=== PATIENT | female | born 2005 | race Caucasian/White ===

== ENCOUNTER 2023-03-22 16:57 | Emergency (ER) | payer BC ==
[2023-03-22 17:58] LABS: Specific Gravity < 1.005 (1.005-1.030); Urine Bacteria <20 /HPF (<20); Urine Bilirubin NEGATIVE (Negative); Urine Blood 3+ (OVER) (Negative); Urine Clarity Clear (Clear); Urine Color Colorless (Yellow); Urine Crystals Unidentified Few /HPF (None Seen); Urine Glucose NEGATIVE (Negative); Urine Protein TRACE (Negative); Urine Urobilinogen Normal (Normal); Urine pH 7.5 (5.0-7.0)
[2023-03-22 19:12] LABS: Albumin 2.9 g/dL (3.4-5.0); Bilirubin Total 0.1 mg/dL (0.2-1.0); Potassium 3.4 mEq/L (3.5-5.1); Protein, Total 7.1 g/dL (6.4-8.2)
[2023-03-22 19:16] LABS: Absolute Lymphocytes (CBC) 2.6 K/uL (0.7-4.9); Hematocrit 34.7 % (36.0-45.0); Lymphocytes % 19.9 % (15.3-44.8); MCV 86.2 fL (80-100); MPV 7.7 fL (7.6-11.3); RBC Red Blood Cell Count 4.03 M/uL (3.86-4.86)
--- NOTE | 2023-03-22 19:51 | ER ---
Nurse's Notes [facility] Name: Jessica Nair Age: 18 yrs Sex: Female : 2005 Arrival Date: 03/22/2023 Time: 16:57 Bed 8 Private MD: Diagnosis: UTI/ Urinary tract infection, site not specified; 4 days Presentation: 03/22 16:59 Chief complaint: Patient states: patient is 4 days post delivery. patient states she ap3 was feeling "full in her head" today. family member reports that the patients blood pressure was 140/110 [employer] and felt anxious. Coronavirus screen: At this time, the client does not indicate any symptoms associated with coronavirus-19. Ebola Screen: No symptoms or risks identified at this time. Initial Sepsis Screen: Does the patient meet any 2 criteria? No. Patient's initial sepsis screen is negative. Does the patient have a suspected source of infection? No. Patient's initial sepsis screen is negative. Risk Assessment: Do you want to hurt yourself or someone else? Patient reports no desire to harm self or others. Onset of symptoms was March 22, 2023. 16:59 Method Of Arrival: Wheelchair ap3 16:59 Acuity: JOSE 3 ap3 Triage Assessment: 17:05 General: Appears distressed, Behavior is anxious. Pain: Denies pain. Neuro: Level of ap3 Consciousness is awake, alert, obeys commands, Oriented to person, place, time, situation, Reports dizziness, her head "feeling full". Cardiovascular: Patient's skin is warm and dry. Respiratory: Airway is patent Respiratory effort is even, unlabored, Respiratory pattern is regular, symmetrical. 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 - Social history:: Smoking status: Reported history of juuling and/or vaping. - Family history:: not pertinent. - Hospitalizations: : Patient was recently seen at. Screenin:05 Abuse screen: Denies threats or abuse. Nutritional screening: No deficits noted. ap3 Tuberculosis screening: No symptoms or risk factors identified. 19:35 [facility] ED Fall Risk Assessment (Adult) History of falling in the last 3 months, nj1 including since admission No falls in past 3 months (0 pts) Confusion or Disorientation No (0 pts) Intoxicated or Sedated No (0 pts) Impaired Gait No (0 pts) Mobility Assist Device Used No (0 pt) Altered Elimination No (0 pt) Score/Fall Risk Level 0 - 2 = Low Risk Oriented to surroundings, Maintained a safe environment, Hourly rounding (assess needs \\T\\ fall precautionary measures) done. Assessment: 18:01 Reassessment: Pt states "I do not want my blood drawn until my urine results come ld1 back.". 18:12 Reassessment: MD Stanford made aware patient is concerned that the hospital does not have cm9 OB services r/t recently giving and "possible eclamsia"; pt. refusing blood work until urine results reviewed with pt. verbalized understanding and at bedside discussing plan of care with pt. 19:35 Reassessment: Patient appears in no apparent distress at this time. Patient and/or nj1 family updated on plan of care and expected duration. Pain level reassessed. Patient is alert, oriented x 3, equal unlabored respirations, skin warm/dry/pink. Patient denies pain at this time. Vital Signs: 16:59 BP 129 / 82; Pulse 71; Resp 17; Temp 98.1; Pulse Ox 100% ; Height 5 ft. 3 in. ; ap3 19:36 BP 124 / 74; nj1 19:53 BP 133 / 82; Pulse 64; Resp 16; Temp 98.4; Pulse Ox 100% on R/A; nj1 ED Course: 16:59 Patient arrived in ED. ap3 17:03 Triage completed. ap3 17:04 Elieser Lopez PA is PHCP. cp 17:04 Geo Dominguez DO is Attending Physician. cp 17:05 Arm band placed on right wrist. ap3 17:12 Davide Coyne MD is Attending Physician. rn 18:40 CBC with Diff Sent. cm9 18:40 CMP Sent. cm9 18:40 Lipase Sent. cm9 18:40 LDH Sent. cm9 18:41 Attending Physician role handed off by Davide Coyne MD ms3 18:41 Geo Dominguez DO is Attending Physician. ms3 18:59 Attending Physician role handed off by Geo Dominguez DO ms3 18:59 Chris Armstrong MD is Attending Physician. ms3 19:00 Jordyn Peñaloza, RN is Primary Nurse. nj1 19:35 Patient has correct armband on for positive identification. Call light in reach. Adult nj1 w/ patient. 19:53 No provider procedures requiring assistance completed. nj1 19:53 Patient did not have IV access during this emergency room visit. nj1 Administered Medications: 20:06 Not Given (Pt discharged ): Trimethoprim-Sulfamethoxazole PO (160 mg-800 mg (DS) 1 nj1 tablet PO once Medication: 19:53 VIS not applicable for this client. nj1 Outcome: 19:50 Discharge ordered by . kdr 19:53 Discharged to home ambulatory. nj1 19:53 Condition: good 19:53 Discharge instructions given to patient, family, Instructed on discharge instructions, follow up and referral plans. medication usage, Demonstrated understanding of instructions, follow-up care, medications, Prescriptions given X 1. 20:09 Patient left the ED. nj1 Signatures: Chris Armstrong MD MD kdr Nieto, Roman, MD MD rn Elieser Lopez, PA PA Kathleen Andrade RN RN ap3 Geo Dominguez DO DO ms3 Jenae Dominguez, JIL RN ld1 Jordyn Peñaloza, RN RN nj1 Yajaira Rivero, RN RN cm9
--- NOTE | 2023-03-22 19:51 | EDPHYS ---
Physician Documentation [facility] Name: Jessica Nair Age: 18 yrs Sex: Female : 2005 Arrival Date: 03/22/2023 Time: 16:57 Bed 8 Private MD: ED Physician Chris Armstrong HPI: 03/22 17:25 This 18 yrs old Female presents to ER via Wheelchair with complaints of anxiety, high rn blood pressure. 17:25 The patient has elevated blood pressure and discovered this at home. Onset: The rn symptoms/episode began/occurred today. Modifying factors: The symptoms are aggravated by anxiety, The symptoms are alleviated by. Associated signs and symptoms: Pertinent negatives: chest pain, headache, visual changes. Severity of symptoms: At its worst the blood pressure was moderate, in the emergency department the blood pressure is improved. The patient has experienced similar episodes in the past. The patient has been recently seen by a physician:. Pt is 4 days post-, has had anxiety that began 2 weeks prior to delivery, takes hydroxyzine for anxiety, reports anxiety worse since delivery, has been emotional and tearful despite medication. BP was elevated at home, markedly improved after took her anxiety medication on the way here. Denies headache/vision changes/chest pain/sob/swelling. . 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 - Social history:: Smoking status: Reported history of juuling and/or vaping. - Family history:: not pertinent. - Hospitalizations: : Patient was recently seen at. ROS: 17:25 Constitutional: Negative for fever, chills, and weight loss, Eyes: Negative for injury, rn pain, redness, and discharge, Neck: Negative for injury, pain, and swelling, Cardiovascular: Negative for chest pain, palpitations, and edema, Respiratory: Negative for shortness of breath, cough, wheezing, and pleuritic chest pain, Abdomen/GI: Negative for abdominal pain, nausea, vomiting, diarrhea, and constipation, Back: Negative for injury and pain, MS/Extremity: Negative for injury and deformity, Skin: Negative for injury, rash, and discoloration, Neuro: Negative for headache, weakness, numbness, tingling, and seizure. Exam: 17:25 Constitutional: This is a well developed, well nourished patient who is awake, alert, rn tearful and appears very anxious Head/Face: Normocephalic, atraumatic. Eyes: Normal conjunctivae Cardiovascular: Regular rate and rhythm. No pulse deficits. Respiratory: No increased work of breathing, no retractions or nasal flaring. Abdomen/GI: Soft, non-tender MS/ Extremity: Pulses equal, no cyanosis. Neurovascular intact. Full, normal range of motion. Equal circumference. Neuro: Awake and alert, GCS 15, oriented to person, place, time, and situation. Motor strength 5/5 in all extremities. Sensory grossly intact. Vital Signs: 16:59 BP 129 / 82; Pulse 71; Resp 17; Temp 98.1; Pulse Ox 100% ; Height 5 ft. 3 in. ; ap3 19:36 BP 124 / 74; nj1 19:53 BP 133 / 82; Pulse 64; Resp 16; Temp 98.4; Pulse Ox 100% on R/A; nj1 MDM: 17:12 Patient medically screened. rn 18:00 Transition of care: Care assumed from Davide Coyne MD. ms3 18:58 Transition of care: After a detail discussion of the patient's case, care is ms3 transferred to Chris Armstrong MD. 19:47 Data reviewed: vital signs, nurses notes. ED course: I reviewed all laboratory data kdr with the patient and family. Provided reassurance that at this time preeclampsia or eclampsia was not a concern. I advised that this was a problem which could arise today time up through 12 weeks however at this time he appears that that is not a concern. The patient and family felt that her anxiety was perhaps contributing to her current feelings and would pursue that with her private physician. Patient family were discharged in good condition and happy with the care provided and the plan for discharge and follow-up. 03/22 17:19 Order name: CBC with Diff; Complete Time: 19:36 rn 03/22 17:19 Order name: CMP; Complete Time: 19:27 rn 03/22 17:19 Order name: Lipase; Complete Time: 19:27 rn 03/22 17:19 Order name: Urinalysis w/ reflexes; Complete Time: 18:42 rn 03/22 17:19 Order name: LDH; Complete Time: 19:27 rn 03/22 18:06 Order name: Urine Culture [facility] 03/22 17:19 Order name: Labs collected and sent; Complete Time: 18:41 rn Administered Medications: 20:06 Not Given (Pt discharged ): Trimethoprim-Sulfamethoxazole PO (160 mg-800 mg (DS) 1 nj1 tablet PO once Disposition Summary: 03/22/23 19:50 Discharge Ordered Location: Home kdr Problem: new kdr Symptoms: have improved kdr Condition: Stable kdr Diagnosis - UTI/ Urinary tract infection, site not specified kdr - 4 days kdr Followup: kdr - With: Private Physician - When: 2 - 3 days - Reason: If symptoms return, Further diagnostic work-up, Recheck today's complaints, Continuance of care, Re-evaluation by your physician Discharge Instructions: - Discharge Summary Sheet kdr - Urinary Tract Infection, Adult kdr Forms: - Medication Reconciliation Form kdr - Thank You Letter kdr - Antibiotic Education kdr Prescriptions: - Bactrim DS 800-160 mg Oral Tablet - take 1 tablet by ORAL route every 12 hours for 3 days; 6 tablet; Refills: 0, kdr Product Selection Permitted Signatures: Dispatcher [employer] EDChris Romero MD MD kdr Nieto, Roman, MD MD rn Prokisch, Amanda RN RN ap3 Geo Dominguez DO DO ms3 Jordyn Peñaloza, RN RN nj1 Corrections: (The following items were deleted from the chart) 20:07 17:19 IV Saline Lock ordered. rn nj1
[2023-03-22 21:14] VITALS: O2SAT 100
[2023-03-22 21:16] VITALS: BP 133/82; TEMP 98.4
== END 2023-03-22 20:09 | disposition home or self-care (01) ==
LOC: ER 16:57
DX: O86.20 Urinary tract infection following delivery, unspecified (principal); F41.9 Anxiety disorder, unspecified
CPT/HCPCS: 36415; 80053; 81001; 83615; 83690; 85025; 87086; 87088; 99283

== ENCOUNTER → 2023-11-24 | Emergency (ER) | payer BC ==
[~2023-11-24] MED LIST: NA CHLORIDE 0.9% 1,000 ML ONE
[2023-11-24 06:53] LABS: Absolute Lymphocytes (CBC) 3.3 K/uL (0.7-4.9); Hematocrit 38.2 % (36.0-45.0); Lymphocytes % 32.8 % (15.3-44.8); MPV 7.9 fL (7.6-11.3); Platelets 279 thou/uL (152-406); RBC Red Blood Cell Count 4.39 M/uL (3.86-4.86)
[2023-11-24 06:56] LABS: Protime INR 1.01
[2023-11-24 06:57] LABS: Specific Gravity 1.012 (1.005-1.030)
[2023-11-24 07:09] LABS: Specific Gravity 1.012 (1.005-1.030); Urine Bacteria <20 /HPF (<20); Urine Bilirubin NEGATIVE (Negative); Urine Blood Negative (Negative); Urine Clarity Turbid (Clear); Urine Color Light-Yellow (Yellow); Urine Glucose NEGATIVE (Negative); Urine Mucus Slight /HPF (None Seen); Urine Protein NEGATIVE (Negative); Urine RBC <5 /HPF (None Seen); Urine Urobilinogen Normal (Normal); Urine pH 5.5 (5.0-7.0)
[2023-11-24 07:18] LABS: ALT/SGPT 43 U/L (13-56); AST/SGOT 25 U/L (15-37); Albumin 3.2 g/dL (3.4-5.0); Alkaline Phosphatase 89 U/L (45-117); BUN Blood Urea Nitrogen 10 mg/dL (7-18); Bicarbonate 25 mEq/L (21-32); Bilirubin Total 0.2 mg/dL (0.2-1.0); Glomerular Filtration Rate 115 ml/min (=/>90); Glucose Level 104 mg/dL (74-106); Lipase 22 U/L (13-75); NT PRO-BNP 38 pg/mL (<125); Potassium 3.9 mEq/L (3.5-5.1); Sodium Level 138 mEq/L (136-145)
[2023-11-24 07:36] LABS: Bilirubin Direct < 0.1 mg/dL (0-0.2); Bilirubin Indirect, Calculated ND mg/dL (0.2-0.8); Troponin High Sensitivity < 3.0 pg/mL (<58.9)
--- NOTE | 2023-11-24 08:13 | RAD REPORT ---
EXAM DESCRIPTION: US - Extrem Venous W Compress Ojshua - 11/24/2023 7:23 am CLINICAL HISTORY: Pain COMPARISON: None. TECHNIQUE: Real-time sonographic evaluation of the bilateral lower extremity deep venous systems was performed. FINDINGS: Normal compressibility, flow augmentation, phasic flow and spontaneous flow is identified in both the left and right lower extremity deep venous systems. No intraluminal filling defects seen. IMPRESSION: No evidence of DVT in either lower extremity.
--- NOTE | 2023-11-24 08:14 | RAD REPORT ---
[facility] 6:58 am CLINICAL HISTORY: CHEST PAIN COMPARISON: No comparisons TECHNIQUE: Portable AP view of the chest. FINDINGS: The lungs are clear. No pneumothorax or effusion. The cardiomediastinal contours are unre markable. IMPRESSION: No acute cardiopulmonary process.
--- NOTE | 2023-11-24 08:34 | RAD REPORT ---
EXAM DESCRIPTION: CT - Chest For Pe Angio - 11/24/2023 7:50 am CLINICAL HISTORY: CHEST PAIN COMPARISON: No comparisons TECHNIQUE: Thin axial CT images of the chest were obtained following administration of 100 mL Isovue 370 IV contrast. Multiplanar reconstructions, and maximum intensity projection reconstructions were generated and reviewed. Exam utilizes a protocol for optimal evaluation of pulmonary arterial tree. All CT scans are performed using dose optimization technique as appropriate and may include automated exposure control or mA/KV adjustment according to patient size. FINDINGS: Pulmonary arteries are normal. No emboli or other suspicious finding, although some breath ing motion artifact mildly limits evaluation. No acute or significant aorta findings. No mass or infiltrate in the lung parenchyma. No pleural thickening or pleural effusion. No pneumotho rax. No abnormal mediastinal or hilar masses or lymphadenopathy seen. No chest wall mass or abnormal axill iary lymphadenopathy. IMPRESSION: No evidence of acute central pulmonary emboli. No other acute findings in the chest.
--- NOTE | 2023-11-24 08:57 | EDPHYS ---
Physician Documentation [facility] Name: Jessica Nair Age: 18 yrs Sex: Female : 2005 Arrival Date: 11/24/2023 Time: 06:05 Bed 8 Private MD: ED Physician Elieser Gerard HPI: 11/24 06:39 This 18 yrs old Female presents to ER via Unassigned with complaints of Chest kayleen Pain, Shortness Of Breath. 06:39 The patient or guardian reports chest pain that is located primarily in the substernal kayleen area. The pain does not radiate. Associated signs and symptoms: The patient has no apparent associated signs or symptoms. The chest pain is described as aching. Duration: The patient or guardian reports multiple episodes, with no pattern. Modifying factors: The symptoms are alleviated by nothing. the symptoms are aggravated by nothing. Severity of pain: At its worst the pain was in the emergency department the pain is unchanged. The patient has experienced similar episodes in the past, several times. 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 - Social history:: Smoking status: Patient denies any tobacco usage or history of. - Family history:: not pertinent. ROS: 06:39 Constitutional: Negative for fever, chills, and weight loss, Eyes: Negative for injury, kayleen pain, redness, and discharge, ENT: Negative for injury, pain, and discharge, Neck: Negative for injury, pain, and swelling, Respiratory: Negative for shortness of breath, cough, wheezing, and pleuritic chest pain, Abdomen/GI: Negative for abdominal pain, nausea, vomiting, diarrhea, and constipation, Back: Negative for injury and pain, : Negative for injury, bleeding, discharge, and swelling, MS/Extremity: Negative for injury and deformity, Skin: Negative for injury, rash, and discoloration, Neuro: Negative for headache, weakness, numbness, tingling, and seizure, Psych: Negative for depression, anxiety, suicide ideation, homicidal ideation, and hallucinations, Allergy/Immunology: Negative for hives, rash, and allergies, Endocrine: Negative for neck swelling, polydipsia, polyuria, polyphagia, and marked weight changes, Hematologic/Lymphatic: Negative for swollen nodes, abnormal bleeding, and unusual bruising, 06:39 Cardiovascular: Positive for chest pain, of the chest, Exam: 06:39 Constitutional: This is a well developed, well nourished patient who is awake, alert, kayleen and in no acute distress. Head/Face: Normocephalic, atraumatic. Eyes: Pupils equal round and reactive to light, extra-ocular motions intact. Lids and lashes normal. Conjunctiva and sclera are non-icteric and not injected. Cornea within normal limits. Periorbital areas with no swelling, redness, or edema. ENT: Nares patent. No nasal discharge, no septal abnormalities noted. Tympanic membranes are normal and external auditory canals are clear. Oropharynx with no redness, swelling, or masses, exudates, or evidence of obstruction, uvula midline. Mucous membranes moist. Neck: Trachea midline, no thyromegaly or masses palpated, and no cervical lymphadenopathy. Supple, full range of motion without nuchal rigidity, or vertebral point tenderness. No Meningismus. Chest/axilla: Normal chest wall appearance and motion. Nontender with no deformity. No lesions are appreciated. Cardiovascular: Regular rate and rhythm with a normal S1 and S2. No gallops, murmurs, or rubs. Normal PMI, no JVD. No pulse deficits. Respiratory: Lungs have equal breath sounds bilaterally, clear to auscultation and percussion. No rales, rhonchi or wheezes noted. No increased work of breathing, no retractions or nasal flaring. Abdomen/GI: Soft, non-tender, with normal bowel sounds. No distension or tympany. No guarding or rebound. No evidence of tenderness throughout. Back: No spinal tenderness. No costovertebral tenderness. Full range of motion. Skin: Warm, dry with normal turgor. Normal color with no rashes, no lesions, and no evidence of cellulitis. MS/ Extremity: Pulses equal, no cyanosis. Neurovascular intact. Full, normal range of motion. Neuro: Awake and alert, GCS 15, oriented to person, place, time, and situation. Cranial nerves II-XII grossly intact. Motor strength 5/5 in all extremities. Sensory grossly intact. Cerebellar exam normal. Normal gait. 06:39 ECG was reviewed by the Attending Physician. Vital Signs: 06:40 BP 127 / 72; Pulse 74; Resp 16; Pulse Ox 99% on R/A; Pain 0/10; tm6 07:00 BP 135 / 77; Pulse 64; Resp 16; Pulse Ox 99% ; ll1 07:30 BP 127 / 75; Pulse 77; Resp 17; Pulse Ox 99% on R/A; Pain 0/10; ll1 09:00 BP 124 / 73; Pulse 75; Resp 16; Temp 98; Pulse Ox 99% on R/A; Pain 0/10; ll1 06:40 Pain Scale: Adult tm6 07:30 Pain Scale: Adult ll1 09:00 Pain Scale: Adult ll1 MDM: 06:10 Patient medically screened. [facility] 06:42 Data reviewed: vital signs, nurses notes, lab test result(s), EKG, radiologic studies, kayleen plain films. 11/24 06:26 Order name: Basic Metabolic Panel; Complete Time: 07:40 [facility] 11/24 06:26 Order name: CBC with Diff; Complete Time: 07:22 [facility] 11/24 06:26 Order name: LFT's; Complete Time: 07:40 [facility] 11/24 06:26 Order name: Magnesium; Complete Time: 07:40 [facility] 11/24 06:26 Order name: NT PRO-BNP; Complete Time: 07:40 [facility] 11/24 06:26 Order name: PT-INR; Complete Time: 07:22 [facility] 11/24 06:26 Order name: Troponin HS; Complete Time: 07:40 [facility] 11/24 06:26 Order name: Lipase; Complete Time: 07:40 [facility] 11/24 06:26 Order name: Urinalysis w/ reflexes; Complete Time: 07:22 [facility] 11/24 06:26 Order name: PREGU; Complete Time: 07:22 [facility] 11/24 06:26 Order name: XRAY Chest (1 view); Complete Time: 08:54 [facility] 11/24 06:26 Order name: CT Chest For PE Angio; Complete Time: 08:54 [facility] 11/24 06:26 Order name: US Extremity Venous W Compression Joshua; Complete Time: 08:54 [facility] 11/24 06:26 Order name: EKG; Complete Time: 06:27 [facility] 11/24 06:26 Order name: Cardiac monitoring; Complete Time: 06:31 [facility] 11/24 06:26 Order name: EKG - Nurse/Tech; Complete Time: : [facility] 11/24 06:26 Order name: IV Saline Lock; Complete Time: [facility] 11/24 06:26 Order name: Labs collected and sent; Complete Time: [facility] 11/24 06:26 Order name: O2 Per Protocol; Complete Time: [facility] 11/24 06:26 Order name: O2 Sat Monitoring; Complete Time: [facility] EC:39 Rate is 72 beats/min. Rhythm is regular. QRS George is Normal. NM interval is normal. QRS kayleen interval is normal. QT interval is normal. No Q waves. T waves are Normal. No ST changes noted. Clinical impression: NSR w/ Non-specific ST/T Changes and No evidence of ischemia. Interpreted by me. Reviewed by me. Administered Medications: 06:50 Drug: NS 0.9% IV 1000 ml IV at 1 bolus Per protocol; 1000 mL bolus Route: IV; Rate: 1 tm6 bolus; Site: right antecubital; 09:01 Follow up: Response: No adverse reaction; IV Status: Completed infusion; IV Intake: ll1 1000ml Disposition Summary: 11/24/23 08:56 Discharge Ordered Notes: Location: Home kdr Problem: new kdr Symptoms: have improved kdr Condition: Stable kdr Diagnosis - Chest pain, unspecified kdr - Dyspnea kdr Followup: kayleen - With: Private Physician - When: 2 - 3 days - Reason: Recheck today's complaints, Continuance of care, Re-evaluation by your physician Followup: kayleen - With: Pan Howard MD - When: 2 - 3 days - Reason: Recheck today's complaints, Re-evaluation by your physician Discharge Instructions: - Discharge Summary Sheet kayleen - Nonspecific Chest Pain, Adult kayleen - Nonspecific Chest Pain, Adult, [id number] kayleen - Aspirin and Your Heart kayleen Forms: - Medication Reconciliation Form kdr - Thank You Letter kdr - Antibiotic Education kdr - Prescription Opioid Use kdr - Patient Portal Instructions kdr - Leadership Thank You Letter kdr - Work release form ll1 - Family Work Release kc6 Prescriptions: - Pepcid 20 mg Oral Tablet - take 1 tablet ORAL route every 12 hours for 10 days; 20 tablet; Refills: 0, kayleen Product Selection Permitted Signatures: Dispatcher [employer] EDMS Moustapha, MD MD kayleen Mon Kevin, MD MD kdr Lewis, Lynsay, RN RN ll1 Windy Ewing RN RN tm6
--- NOTE | 2023-11-24 08:57 | ER ---
Nurse's Notes [facility] Name: Jessica Nair Age: 18 yrs Sex: Female : 2005 Arrival Date: 11/24/2023 Time: 06:05 Bed 8 Private MD: Diagnosis: Chest pain, unspecified;Dyspnea Presentation: 11/24 07:31 Chief complaint: SOB for months. Coronavirus screen: Client denies travel out of the [facility] [place] in the last 14 days. Ebola Screen: Patient denies travel to an Ebola-affected area in the 21 days before illness onset. Initial Sepsis Screen: Does the patient meet any 2 criteria? No. Patient's initial sepsis screen is negative. Does the patient have a suspected source of infection? No. Patient's initial sepsis screen is negative. Risk Assessment: Do you want to hurt yourself or someone else? Patient reports no desire to harm self or others. Onset of symptoms was August 28, 2023. 07:31 Acuity: JOSE 3 ll1 07:31 Method Of Arrival: Ambulatory [facility] YARN INSPECTOR: 09:01 LMP N/A - control method, Not 1 Historical: - Allergies: 07:29 No Known Allergies; 1 - PMHx: 07:29 Anxiety; 1 - Immunization history:: Adult Immunizations up to date. - Social history:: Smoking status: Patient denies any tobacco usage or history of. - Family history:: not pertinent. Screenin:18 [facility] ED Fall Risk Assessment (Adult) History of falling in the last 3 months, tm6 including since admission No falls in past 3 months (0 pts). Abuse screen: Denies threats or abuse. Denies injuries from another. Nutritional screening: No deficits noted. Tuberculosis screening: No symptoms or risk factors identified. Assessment: 06:18 General: Appears in no apparent distress. Behavior is calm, cooperative. Pain: tm6 Complains of pain in anterior aspect of left upper chest Pain does not radiate. Pain currently is 0 out of 10 on a pain scale. at worst was 8 out of 10 on a pain scale. Quality of pain is described as sharp, shooting, Pain began on and off for 2 months. Neuro: Level of Consciousness is awake, alert, obeys commands, Oriented to person, place, time, situation. Cardiovascular: Capillary refill < 3 seconds Patient's skin is warm and dry. Respiratory: Airway is patent Respiratory effort is even, unlabored, Respiratory pattern is regular, symmetrical. GI: Abdomen is round non-distended. : No signs and/or symptoms were reported regarding the genitourinary system. EENT: No signs and/or symptoms were reported regarding the EENT system. Derm: No signs and/or symptoms reported regarding the dermatologic system. Musculoskeletal: No signs and/or symptoms reported regarding the musculoskeletal system. 07:00 Reassessment: Report received from production shift supervisor RN. ll1 07:30 Reassessment: No changes from previously documented assessment. Patient and/or family ll1 updated on plan of care and expected duration. Pain level reassessed. Doesn't want CT or flu/covid swabs. Dr. Gerard informed. No pain, gait steady from restroom Patient denies pain at this time. Patient states feeling better. Vital Signs: 06:40 BP 127 / 72; Pulse 74; Resp 16; Pulse Ox 99% on R/A; Pain 0/10; tm6 07:00 BP 135 / 77; Pulse 64; Resp 16; Pulse Ox 99% ; ll1 07:30 BP 127 / 75; Pulse 77; Resp 17; Pulse Ox 99% on R/A; Pain 0/10; ll1 09:00 BP 124 / 73; Pulse 75; Resp 16; Temp 98; Pulse Ox 99% on R/A; Pain 0/10; ll1 06:40 Pain Scale: Adult tm6 07:30 Pain Scale: Adult ll1 09:00 Pain Scale: Adult ll1 Vitals: 06:40 Cardiac Rhythm Assessment Regular Sinus rhythm. tm6 ED Course: 06:09 Patient arrived in ED. gm2 06:10 Elieser Gerard MD is Attending Physician. [facility] 06:18 Windy Ewing, JIL is Primary Nurse. tm6 06:18 Patient has correct armband on for positive identification. Placed in gown. Bed in low tm6 position. Call light in reach. Side rails up X2. Provided Education on: plan of care. Client placed on continuous cardiac and pulse oximetry monitoring. NIBP monitoring applied. nurse monitoring on. Door closed. Noise minimized. 06:18 No provider procedures requiring assistance completed. Patient maintains SpO2 tm6 saturation greater than 95% on room air. 06:40 Inserted saline lock: 20 gauge in right antecubital area, using aseptic technique. tm6 07:00 XRAY Chest (1 view) In Process Unspecified. EDMS 07:00 Report received from Zohreh Ruvalcaba RN \T\ Windy Ewing RN. kc6 07:20 Primary Nurse role handed off by Windy Ewing RN ll1 07:20 Ankush Patel, RN is Primary Nurse. ll1 07:24 US Extremity Venous W Compression Joshua In Process Unspecified. EDMS 07:25 Arm band placed on Patient placed in an exam room, on a stretcher. ll1 07:32 Triage completed. ll1 07:52 CT Chest For PE Angio In Process Unspecified. EDMS 08:56 Pan Howard MD is Referral Physician. kdr 09:00 IV discontinued, intact, bleeding controlled, No redness/swelling at site. Pressure ll1 dressing applied. Administered Medications: 06:50 Drug: NS 0.9% IV 1000 ml IV at 1 bolus Per protocol; 1000 mL bolus Route: IV; Rate: 1 tm6 bolus; Site: right antecubital; 09:01 Follow up: Response: No adverse reaction; IV Status: Completed infusion; IV Intake: ll1 1000ml Medication: 06:18 VIS not applicable for this client. tm6 Intake: 09:01 IV: 1000ml; Total: 1000ml. ll1 Outcome: 08:56 Discharge ordered by . kdr 09:01 Discharged to home ambulatory, ll1 09:01 Condition: stable 09:01 Discharge instructions given to patient, Instructed on discharge instructions, follow up and referral plans. medication usage, Demonstrated understanding of instructions, follow-up care, medications, Prescriptions given X 1, 09:23 Patient left the ED. kc6 Signatures: Dispatcher [employer] EDMS Elieser Gerard MD MD cha Rittger, Kevin, MD MD kdr Lewis, Lynsay, RN RN ll1 Anahi Cunningham RN RN [email or web address] [facility] Windy Ewing, JIL RN tm6 Corrections: (The following items were deleted from the chart) 09:01 09:00 BP 124 / 73; Pulse 75bpm; Resp 16bpm; Pulse Ox 99% RA; Pain 0/10, Adult; ll1 ll1
[2023-11-24 11:16] VITALS: O2SAT 99
[2023-11-24 11:23] VITALS: BP 124/73; TEMP 98
--- NOTE | 2023-11-24 13:18 | EKG ---
Test Date: 2023-11-24 Test Time: 06:25:34 Process Steward: ANDREIA MEASUREMENT RESULTS: Intervals: Rate: 72 KS: 134 QRSD: 84 QT: 412 QTc: 451 [place]: P: 38 KS: 134 QRS: 59 T: 29 INTERPRETIVE STATEMENTS: Normal sinus rhythm with sinus arrhythmia Normal ECG No previous ECG available for comparison Electronically Signed On 11-24-23 13:17:36 CREDIT ADMINISTRATION SPECIALIST by Pan Howard
== END ==
LOC: ER 06:05
DX: R07.9 Chest pain, unspecified (principal); R06.00 Dyspnea, unspecified; F41.9 Anxiety disorder, unspecified
CPT/HCPCS: 96361; 93005; 85025; 81001; 80048; 36415; 83735; 81025; 85610; 80076; 84484; 83690; 83880; 71275; 71045; 93970; 96360; 99285; Q9967; J7030